=== PATIENT | female | born 1995 | race Caucasian/White ===

== ENCOUNTER 2025-03-06 19:41 | Emergency (ER) | payer OTHER ==
[~2025-03-06] VITALS: Ht 160 cm; Wt 68.0 kg
[2025-03-06 19:57] VITALS: O2SAT 99
[2025-03-06 20:56] VITALS: BP 126/84; PULSE 75; RESP 20; TEMP 36.8; O2SAT 99
== END 2025-03-06 20:57 | disposition home or self-care (01) ==
LOC: ER 19:41
DX: S09.90XA Unspecified injury of head, initial encounter (principal); W10.9XXA Fall (on) (from) unspecified stairs and steps, initial encounter; Y93.89 Activity, other specified; Y92.89 Other specified places as the place of occurrence of the external cause; Y99.8 Other external cause status
CPT/HCPCS: 99282